=== PATIENT | female | born 1995 | race African-American/Black ===

== ENCOUNTER 2019-10-15 05:28 | Inpatient (IN) ==
[2019-10-08 09:42] LABS: Basophils % 0.5 % (0.0-0.8); Eosinophils # 0.3 10*3/uL (0.0-0.87); Hematocrit 41.6 VOL% (35.7-47.0); Hemoglobin 13.7 GM/DL (12.0-16.0); Immature Granulocytes % 0.1 %; Immature Granulocytes Absolute 0.01 #; Lymphocytes # 1.6 10*3/uL (1.4-4.0); Lymphocytes % 20.9 % (21.3-54.2); Mean Corpuscular HGB Conc 32.9 GM/DL (32-36); Mean Corpuscular Volume 87.6 FL (87-102); Mean Platelet Volume 11.1 FL (9.6-12.0); Monocytes % 9.9 % (1.7-12.7); Neutrophils % 64.6 % (38.7-73.9); Platelet Count 188 T/CUMM (130-400); Red Blood Count 4.75 MC/CUMM (3.8-5.5); Red Cell Distribution Width 12.8 % (9.3-17.3); White Blood Count 7.5 T/CUMM (4-12)
[2019-10-08 09:46] LABS: Apearance,Urine CLEAR (Clear); Bilirubin,Urine Negative (Negative); Blood, Urine Large mg/dL (Negative); Glucose,Urine (UA) Negative (Negative); Ketones,Urine Negative (Negative); Mucus,Urine Occasional /LPF (Occasional); Nitrite,Urine Negative (Negative); Protein,Urine Negative; RBC,Urine 171 /HPF (0-4); Squamous Epithelial Cell,Urine Occasional /HPF (0-10); Urine Color Yellow (Yellow); Urine Specific Gravity 1.014 (1.001-1.035); Urine Urobilinogen < 2.0 EU/DL (0.2-1.0); WBC,Urine 1 /HPF (0-6)
[2019-10-08 09:54] LABS: INR 0.9; PT Patient Result 9.7 SECS (9.6-12.2); Partial Thromboplastin Time 26.8 SECS (20.8-36.0)
[2019-10-08 10:11] LABS: Osmolality,Calculated 268.8 MOS/KG (273-304)
[2019-10-15] MEDS ORDERED: ceFAZolin 1,000 MG VIAL ONE (05:42)
[2019-10-15] MEDS ORDERED: LACTATED RINGERS 1,000 ML IV SCH (06:00)
[2019-10-15] MEDS ORDERED: ceFAZolin 1,000 MG in SYRINGE 1 EACH IV ONE (07:00)
[2019-10-15] MEDS ORDERED: BUPIVACAINE MPF 0.25% 30 ML VIAL ONE (08:42)
[2019-10-15] MEDS ORDERED: BISACODYL 10 MG SUPP RECTAL PRN (10:57)
[2019-10-15] MEDS ORDERED: BENZOCAINE/MENTHOL LOZENGE 18/BOX PO PRN (10:57)
[2019-10-15] MEDS ORDERED: IBUPROFEN 800 MG TABLET PO PRN (10:57)
[2019-10-15] MEDS ORDERED: MAGNESIUM HYDROXIDE SUSP 30 ML UDCUP PO PRN (10:57)
[2019-10-15] MEDS ORDERED: ACETAMINOPHEN 325 MG TABLET PO PRN (10:57)
[2019-10-15 11:15] LABS: Apearance,Urine CLEAR (Clear); Bacteria,Urine Occasional /HPF (Few); Bilirubin,Urine Negative (Negative); Blood, Urine Negative (Negative); Glucose,Urine (UA) Negative (Negative); Ketones,Urine Negative (Negative); Mucus,Urine Occasional /LPF (Occasional); Nitrite,Urine Negative (Negative); Protein,Urine Negative; RBC,Urine 4 /HPF (0-4); Squamous Epithelial Cell,Urine Occasional /HPF (0-10); Urine Color Yellow (Yellow); Urine Specific Gravity 1.014 (1.001-1.035); Urine Urobilinogen < 2.0 EU/DL (0.2-1.0); WBC,Urine 1 /HPF (0-6)
[2019-10-15] MEDS ORDERED: propofoL 200 MG/20 ML VIAL IV ONE (11:17)
[2019-10-15] MEDS ORDERED: MIDAZOLAM 2 MG/2 ML VIAL ONE (11:18)
[2019-10-15] MEDS ORDERED: DEXAMETHASONE 4 MG/1 ML VIAL ONE (11:18)
[2019-10-15] MEDS ORDERED: ROCURONIUM 100 MG/10 ML VIAL IV ONE (11:18)
[2019-10-15] MEDS ORDERED: NEOSTIGMINE 10 MG/10 ML VIAL ONE (11:18)
[2019-10-15] MEDS ORDERED: ONDANSETRON 4 MG/2 ML VIAL ONE ×2 (11:18→11:21)
[2019-10-15] MEDS ORDERED: GLYCOPYRROLATE 0.4 MG/2 ML VIAL ONE (11:18)
[2019-10-15] MEDS ORDERED: fentaNYL 100 MCG/2 ML VIAL ONE (11:18)
[2019-10-15] MEDS ORDERED: SEVOFLURANE 1 UNIT/15 MINUTE INH ONE (11:18)
[2019-10-15] MEDS ORDERED: KETOROLAC 30 MG/1 ML VIAL ONE (11:18)
[2019-10-15] MEDS ORDERED: LIDOCAINE 2% 5 ML VIAL ONE (11:18)
[2019-10-15] MEDS ORDERED: LACTATED RINGERS 1,000 ML IV ONE (11:19)
[2019-10-15] MEDS ORDERED: HYDROmorphone 2 MG/1 ML VIAL ONE (11:21)
[2019-10-15] MEDS ORDERED: ONDANSETRON 4 MG/2 ML VIAL IV PRN (11:22)
[2019-10-15] MEDS ORDERED: HYDROmorphone 2 MG/1 ML VIAL IV PRN (11:22)
[2019-10-15] MEDS ORDERED: MEPERIDINE 25 MG/1 ML VIAL ONE (13:45)
[2019-10-15] MEDS: MEPERIDINE 25 MG/1 ML VIAL IV PRN ×3 (13:52→20:23)
[2019-10-15] MEDS: ONDANSETRON 4 MG/2 ML VIAL IV PRN ×2 (13:52→20:20)
[2019-10-15] MEDS: LACTATED RINGERS 1,000 ML IV SCH ×2 (14:45→23:51)
[2019-10-15] MEDS ORDERED: SODIUM CHLORIDE 0.9% 50 ML IV ONE (16:50)
[2019-10-15] MEDS: ceFAZolin 1,000 MG in SYRINGE 1 EACH IV SCH (16:59)
[2019-10-15] MEDS ORDERED: KETOROLAC 30 MG/1 ML VIAL IV PRN (19:21)
[2019-10-15] MEDS ORDERED: oxyCODONE/ACETAMINOPHEN 5-325 MG TABLET PO PRN (22:57)
[2019-10-16] MEDS: IBUPROFEN 800 MG TABLET PO PRN ×4 (01:18→23:35)
[2019-10-16] MEDS: oxyCODONE/ACETAMINOPHEN 5-325 MG TABLET PO PRN ×4 (01:19→23:34)
[2019-10-16] MEDS: ceFAZolin 1,000 MG in SYRINGE 1 EACH IV SCH (01:20)
[2019-10-16] MEDS ORDERED: SIMETHICONE CHEW 80 MG TABLET PO PRN (02:29)
[2019-10-16 05:02] LABS: Basophils % 0.3 % (0.0-0.8); Eosinophils % 0.3 % (0.00-10.9); Hematocrit 32.5 VOL% (35.7-47.0); Immature Granulocytes % 0.3 %; Immature Granulocytes Absolute 0.04 #; Lymphocytes # 1.5 10*3/uL (1.4-4.0); Lymphocytes % 13.4 % (21.3-54.2); Mean Corpuscular HGB Conc 33.8 GM/DL (32-36); Mean Corpuscular Volume 86.4 FL (87-102); Mean Platelet Volume 11.5 FL (9.6-12.0); Neutrophils % 75.7 % (38.7-73.9); Platelet Count 160 T/CUMM (130-400); Red Blood Count 3.76 MC/CUMM (3.8-5.5); Red Cell Distribution Width 12.6 % (9.3-17.3); White Blood Count 11.5 T/CUMM (4-12)
[2019-10-16] MEDS: DOCUSATE SODIUM 100 MG CAPSULE PO PRN ×2 (08:38→21:15)
[2019-10-16] MEDS: ONDANSETRON 4 MG TABLET PO PRN ×2 (15:48→23:34)
[2019-10-17 07:11] VITALS: BP 120/66
[2019-10-17] MEDS: DOCUSATE SODIUM 100 MG CAPSULE PO PRN (08:25)
[2019-10-17] MEDS: IBUPROFEN 800 MG TABLET PO PRN ×2 (08:25→14:44)
[2019-10-17] MEDS ORDERED: INFLUENZA VIRUS VACCINE 0.5 ML SYRINGE IM ONE (10:12)
[2019-10-17] MEDS: oxyCODONE/ACETAMINOPHEN 5-325 MG TABLET PO PRN (14:44)
== END 2019-10-17 17:20 | disposition home or self-care (01) | DRG 743 ==
LOC: N.OR 05:28 → N.SDSINP 05:29 → N.OB 12:02
PROVIDERS: ADMIT Specialist; ATTEND Specialist